=== PATIENT | male | born 1975 | race Caucasian/White ===

== ENCOUNTER 2017-12-09 15:01 | Emergency (ER) | payer MEDICAID ==
[~2017-12-09] VITALS: Ht 180.3 cm; Wt 70.5 kg
[2017-12-09 15:33] VITALS: Ht 180.3 cm; Wt 70.5 kg
[2017-12-09] MEDS ORDERED: BAYER CHEWABLE81 MG (15:34)
[2017-12-09] MEDS ORDERED: VITAMIN D31000 UNI2 (15:34)
[2017-12-09] MEDS ORDERED: CALCIUM 250+D T1 TAB (15:34)
[2017-12-09] MEDS ORDERED: ACETAMINOP160 MG/5 M (15:34)
[2017-12-09] MEDS ORDERED: NEURONTIN600 MG (15:34)
[2017-12-09] MEDS ORDERED: CYCLOBENZAPRINE5 MG (15:35)
[2017-12-09 17:09] LABS: BASOPHILS 0.7 % (0-2); EOSINOPHILS 1.7 % (0-7); HEMATOCRIT 26.4 % (42.0-54.0); HEMOGLOBIN 8.6 g/dL (13.5-17.5); IMMATURE GRANULOCYTES 0.3 % (0-5); MCH 31.9 pg (26.0-34.0); MCHC 32.6 g/dL (31.0-37.0); MCV 97.8 fL (80.0-100.0); MEAN PLATELET VOLUME 9.2 fL (7.4-10.4); NEUTROPHILS 68.3 % (40-80); PLATELET COUNT 458 10x3/uL (130-400); RDW 15.7 % (11.5-14.5); WBC 7.5 10x3/uL (4.8-10.8)
[2017-12-09 17:28] LABS: ALBUMIN 3.2 g/dL (3.4-5.0); ALKALINE PHOSPHATASE 80 U/L (46-116); ALT (SGPT) 21 U/L (10-68); BILIRUBIN - TOTAL 0.25 mg/dL (0.2-1.3); CALC OSMOLALITY 275 mosm/kg (275-300); CALCIUM 8.6 mg/dL (8.5-10.1); CARBON DIOXIDE 29.6 mmol/L (21.0-32.0); CHLORIDE - SERUM 104 mmol/L (98-107); CREATININE - SERUM 0.9 mg/dL (0.6-1.3); GLUCOSE 84 mg/dL (74-106); POTASSIUM - SERUM 3.9 mmol/L (3.5-5.1); PROTEIN - SERUM 6.6 g/dL (6.4-8.2); SODIUM 139 mmol/L (136-145); UREA NITROGEN 9 mg/dL (7-18); eGFR NON AFRICAN AMERICAN > 90 mL/min (90-120)
[2017-12-09] MEDS ORDERED: NORCO 5/325 TAB1 TAB PO (18:20)
[2017-12-09 19:03] VITALS: BP 127/84
== END 2017-12-09 19:03 | disposition home or self-care (01) ==
LOC: D.ER 15:01
PROVIDERS: Emergency Medicine
DX: G89.18 Other acute postprocedural pain (principal); D64.9 Anemia, unspecified; F17.200 Nicotine dependence, unspecified, uncomplicated

== ENCOUNTER 2018-11-27 21:19 | Emergency (ER) | payer OTHER ==
[~2018-11-27] VITALS: Ht 180.3 cm; Wt 68.2 kg
[~2018-11-27 21:19] MED LIST: ACETAMINOP160 MG/5 M; BAYER CHEWABLE81 MG; CALCIUM 250+D T1 TAB; CYCLOBENZAPRINE5 MG; NEURONTIN600 MG; NORCO 5/325 TAB1 TAB PO; VITAMIN D31000 UNI2
[2018-11-27 21:43] VITALS: Ht 180.3 cm; Wt 68.2 kg
[2018-11-27] MEDS ORDERED: HYDROCODON-ACE1 EA10 PO (23:43)
[2018-11-27 23:56] VITALS: BP 116/70
== END 2018-11-27 23:56 | disposition home or self-care (01) ==
LOC: D.ER 21:19
DX: M79.662 Pain in left lower leg (principal)